=== PATIENT | male | born 1970 | race Caucasian/White ===

== ENCOUNTER 2016-12-09 18:55 | Emergency (ER) | payer OTHER ==
[~2016-12-09] VITALS: Ht 185.4 cm; Wt 71.5 kg
[~2016-12-09 18:55] MED LIST: FLEXERIL10 MG PO; NAPROSYN500 MG PO
[2016-12-09 19:37] LABS: ADD MIUA? YES; BILIRUBIN NEGATIVE; BLOOD NEGATIVE; COLOR AMBER ((YELLOW)); GLUCOSE (STRIP) NEGATIVE; KETONES 5; LEUKOCYTES NEGATIVE; NITRITE POSITIVE; PROTEIN (STRIP) 30; SPECIFIC GRAVITY 1.014 (1.000-1.030)
[2016-12-09 20:03] LABS: HEMATOCRIT 50.6 % (38.0-50.0); MCH 31.6 PG (29.0-34.0); MCHC 35.4 G/DL (30.0-36.0); MCV 89.2 FL (86-99); PLATELET COUNT 181 K/uL (156-360); RBC DIS.WIDTH-CV 11.6 % (11.8-14.6); RBC DIS.WIDTH-SD 37.6 % (39-53); RED BLOOD COUNT 5.67 M/uL (4.00-5.50); WHITE BLOOD COUNT 4.8 K/uL (4.1-10.2)
[2016-12-09 20:03] LABS: BACTERIA NONE SEEN /HPF; EPITHELIAL CELLS NONE SEEN /HPF; HYALINE CASTS 0-5 /LPF; MUCUS TRACE /LPF; UCUL ADDED? YES; WHITE BLOOD CELLS 15-20 /HPF (0-5); WHITE BLOOD CELLS CLUMP RARE /HPF (0-5)
[2016-12-09 20:34] LABS: CHLORIDE 102 mEq/L (99-109); POTASSIUM 4.4 mEq/L (3.7-5.4); SODIUM 137 mEq/L (136-147)
[2016-12-09 20:36] LABS: GLUCOSE 104 mg/dL (70-99)
[2016-12-09 20:37] LABS: ANION GAP 9 MEQ/L (2-14)
[2016-12-09 20:38] LABS: TOTAL BILIRUBIN 0.6 mg/dL (0.0-1.0)
[2016-12-09 20:39] LABS: ALKALINE PHOSPHATASE 72 IU/L (3-129)
[2016-12-09 20:40] LABS: GFR ESTIMATE (CALCULATED) > 59 mL/min/
[2016-12-09 20:41] LABS: UREA NITROGEN (BUN) 11 mg/dL (9-23)
[2016-12-09] MEDS ORDERED: DOXYCYCLINE HY100 MG PO (21:43)
[2016-12-09] MEDS ORDERED: NAPROSYN500 MG PO (21:50)
[2016-12-09 22:03] VITALS: BP 128/87
== END 2016-12-09 22:12 | disposition home or self-care (01) ==
LOC: RME 18:55 → EME 18:55 → RME 22:12
PROVIDERS: Nurse Practitioner Family
DX: A54.31 Gonococcal conjunctivitis (principal); N30.91 Cystitis, unspecified with hematuria; I10 Essential (primary) hypertension
CPT/HCPCS: 80053; 81003; 85027; 87086; 99281; 99285; J0696; J1885; J7050